=== PATIENT | male | born 1960 | race African-American/Black ===

== ENCOUNTER 2020-10-12 03:16 | Inpatient (IN) | payer MEDICAID ==
[~2020-10-12] VITALS: Ht 170.2 cm; Wt 137.0 kg
[2020-10-12 04:30] LABS: HEMATOCRIT. 34.6 % (42.0-52.0); HEMOGLOBIN. 10.7 g/dL (14.0-18.0); MEAN CORPUSCULAR HEMOGLOBIN 22.5 pg (28.0-32.0); MEAN PLATELET VOLUME 7.2 fl (7.4-10.4); PLATELET 359 x1000/uL (130-400); RED BLOOD CELL COUNT 4.74 mill/uL (4.7-6.1); RED CELL DISTRIBUTION WIDTH 17.1 % (11.6-14.6)
[2020-10-12] MEDS ORDERED: CEFTRIAXONE 1 G PREMIX 50 ML IV ONE (04:30)
[2020-10-12] MEDS ORDERED: AZITHROMYCIN 500 MG in DEXT 5% WATER 250 ML IV SCH (04:30)
[2020-10-12 04:40] LABS: INR 1.3; PROTHROMBIN TIME 13.5 sec (9.6-11.0)
[2020-10-12 04:49] LABS: CHLORIDE 103 mEq/L (98-107)
[2020-10-12] MEDS ORDERED: ONDANSETRON HCL 4MG/2ML INJ IV ONE (06:00)
[2020-10-12] MEDS ORDERED: AZITHROMYCIN 500 MG in DEXT 5% WATER 250 ML IV ONE (06:00)
[2020-10-12] MEDS ORDERED: FAMOTIDINE 20MG/2ML VIAL IV ONE (06:00)
[2020-10-12 06:26] LABS: PLATELET ESTIMATE NORMAL
[2020-10-12 09:50] VITALS: BP 175/62
[2020-10-12 10:51] VITALS: BP 153/91
[2020-10-12 12:00] VITALS: BP 154/62
[2020-10-12] MEDS ORDERED: DOCUSATE SODIUM 100MG CAPSULE PO PRN (14:00)
[2020-10-12] MEDS ORDERED: ZOLPIDEM TARTRATE 5MG TABLET PO PRN (14:00)
[2020-10-12] MEDS ORDERED: ONDANSETRON HCL 4MG/2ML INJ IV PRN (14:00)
[2020-10-12] MEDS ORDERED: LEVOFLOXACIN 500MG PREMIX 100 ML IV SCH (14:00)
[2020-10-12] MEDS ORDERED: CLONIDINE 0.1MG TABLET PO PRN (14:00)
[2020-10-12] MEDS: ENOXAPARIN 40MG/0.4ML SYR SUBCUT SCH (15:17)
[2020-10-12] MEDS: AMLODIPINE 10MG TABLET PO SCH (15:18)
[2020-10-12 16:00] VITALS: BP 126/44
[2020-10-12] MEDS ORDERED: LEVOFLOXACIN 750MG PREMIX 150 ML IV SCH (16:00)
[2020-10-12] MEDS ORDERED: DEXTROSE 50% WATER 50ML SYRINGE IV PRN (17:15)
[2020-10-12] MEDS: BLOOD SUGAR DIAGNOSTIC STRIP TEST SCH ×2 (17:21→21:19)
[2020-10-12] MEDS: INSULIN LISPRO 100 UNITS/ML SUBCUT SCH ×2 (17:22→21:31)
[2020-10-12 20:00] VITALS: BP 154/64
[2020-10-12] MEDS: SODIUM CHLORIDE 0.9% 1,000 ML IV SCH (21:19)
[2020-10-12] MEDS: ACETAMINOPHEN 325MG TABLET PO PRN (21:29)
[2020-10-12] MEDS: FAMOTIDINE 20MG/2ML VIAL IV SCH (21:30)
[2020-10-12] MEDS: INSULIN GLARGINE UD 100 UNITS/ML SYR SUBCUT SCH (21:32)
[2020-10-13] VITALS (7 sets, daily range): BP systolic 124–151; BP diastolic 51–64
[2020-10-13] MEDS: IPRATROPIUM/ALBUTEROL 0.5-3(2.5)MG/3ML NEB HHN PRN ×5 (01:39→21:31)
[2020-10-13] MEDS: BLOOD SUGAR DIAGNOSTIC STRIP TEST SCH ×4 (06:29→21:32)
[2020-10-13 08:49] LABS: CLARITY URINE CLEAR (CLEAR); COLOR URINE YELLOW (YELLOW); KETONES URINE NEGATIVE (NEGATIVE); LEUKOCYTE ESTERASE URINE NEGATIVE (NEGATIVE); NITRITE URINE NEGATIVE (NEGATIVE); OCCULT BLOOD URINE TRACE (NEGATIVE); PROTEIN URINE 2+ (NEGATIVE); SPECIFIC GRAVITY URINE 1.018 (1.005-1.030); UROBILINOGEN URINE 0.2 E.U./dL (0.2-1.0)
[2020-10-13] MEDS: AMLODIPINE 10MG TABLET PO SCH (09:43)
[2020-10-13] MEDS: INSULIN LISPRO 100 UNITS/ML SUBCUT SCH ×4 (09:44→21:44)
[2020-10-13] MEDS: INSULIN GLARGINE UD 100 UNITS/ML SYR SUBCUT SCH ×2 (09:54→21:45)
[2020-10-13] MEDS: SODIUM CHLORIDE 0.9% 1,000 ML IV SCH (16:27)
[2020-10-13] MEDS: ENOXAPARIN 40MG/0.4ML SYR SUBCUT SCH (16:27)
[2020-10-13] MEDS ORDERED: GUAIFENESIN/CODEINE 100-10MG/5ML UDC PO PRN (17:00)
[2020-10-13] MEDS: ACETAMINOPHEN 325MG TABLET PO PRN (19:43)
[2020-10-13] MEDS: GUAIFENESIN 200MG/10ML SUGAR FREE UDC PO PRN (19:44)
[2020-10-13] MEDS: FAMOTIDINE 20MG/2ML VIAL IV SCH (21:44)
[2020-10-14] VITALS: BP 151/62
[2020-10-14] MEDS: IPRATROPIUM/ALBUTEROL 0.5-3(2.5)MG/3ML NEB HHN PRN ×5 (00:11→17:15)
[2020-10-14] MEDS: ACETAMINOPHEN 325MG TABLET PO PRN ×2 (01:44→16:46)
[2020-10-14] MEDS: GUAIFENESIN 200MG/10ML SUGAR FREE UDC PO PRN ×3 (01:44→16:46)
[2020-10-14 04:00] VITALS: BP 154/62
[2020-10-14 06:37] LABS: HEMATOCRIT. 30.3 % (42.0-52.0); HEMOGLOBIN. 9.6 g/dL (14.0-18.0); MEAN CORPUSCULAR HEMOGLOBIN 22.6 pg (28.0-32.0); MEAN CORPUSCULAR VOLUME 71.4 fL (80.0-94.0); MEAN PLATELET VOLUME 7.4 fl (7.4-10.4); PLATELET 323 x1000/uL (130-400); RED BLOOD CELL COUNT 4.24 mill/uL (4.7-6.1); RED CELL DISTRIBUTION WIDTH 16.6 % (11.6-14.6)
[2020-10-14] MEDS: BLOOD SUGAR DIAGNOSTIC STRIP TEST SCH ×3 (07:20→17:33)
[2020-10-14 08:00] VITALS: BP 139/69
[2020-10-14 08:37] LABS: CHLORIDE 100 mEq/L (98-107)
[2020-10-14] MEDS: AMLODIPINE 10MG TABLET PO SCH (08:51)
[2020-10-14] MEDS: INSULIN LISPRO 100 UNITS/ML SUBCUT SCH ×3 (08:52→17:33)
[2020-10-14] MEDS: INSULIN GLARGINE UD 100 UNITS/ML SYR SUBCUT SCH (10:56)
[2020-10-14] MEDS ORDERED: LEVOFLOXACIN 750MG PREMIX 150 ML IV SCH (11:00)
[2020-10-14] MEDS: SODIUM CHLORIDE 0.9% 1,000 ML IV SCH (11:17)
[2020-10-14 12:00] VITALS: BP 150/69
[2020-10-14] MEDS: ENOXAPARIN 40MG/0.4ML SYR SUBCUT SCH (14:58)
[2020-10-14 16:00] VITALS: BP 152/44
[2020-10-14] MEDS ORDERED: INSULIN GLARGINE UD 100 UNITS/ML SYR SUBCUT SCH (22:00)
[2020-10-15 14:24] LABS: PLATELET ESTIMATE NORMAL
[2020-10-16 09:11] LABS: IMMUNOGLOBULIN A 372 mg/dL (61-437); IMMUNOGLOBULIN G 1511 mg/dL (603-1613); IMMUNOGLOBULIN M 23 mg/dL (20-172)
== END 2020-10-14 18:13 | disposition short-term general hospital (02) | DRG 139 ==
LOC: ER 03:16 → 6WST 06:15 → ENRESERV 07:49
PROVIDERS: ADMIT Internal Medicine Pulmonary Disease; ATTEND Internal Medicine Pulmonary Disease
DX: J18.9 Pneumonia, unspecified organism (principal); J96.20 Acute and chronic respiratory failure, unspecified whether with hypoxia or hypercapnia; E44.0 Moderate protein-calorie malnutrition; N17.9 Acute kidney failure, unspecified; E11.22 Type 2 diabetes mellitus with diabetic chronic kidney disease; C85.90 Non-Hodgkin lymphoma, unspecified, unspecified site; E11.319 Type 2 diabetes mellitus with unspecified diabetic retinopathy without macular edema; E87.1 Hypo-osmolality and hyponatremia; E11.51 Type 2 diabetes mellitus with diabetic peripheral angiopathy without gangrene; D50.9 Iron deficiency anemia, unspecified; I50.9 Heart failure, unspecified; I13.0 Hypertensive heart and chronic kidney disease with heart failure and stage 1 through stage 4 chronic kidney disease, or unspecified chronic kidney disease; E11.65 Type 2 diabetes mellitus with hyperglycemia; E66.01 Morbid (severe) obesity due to excess calories; G47.33 Obstructive sleep apnea (adult) (pediatric); N18.4 Chronic kidney disease, stage 4 (severe); Z87.891 Personal history of nicotine dependence; Z89.519 Acquired absence of unspecified leg below knee; Z20.822 Contact with and (suspected) exposure to COVID-19
CPT/HCPCS: 36415; 71045; 74176; 80053; 81003; 82784; 82962; 83036; 83615; 83880; 84484; 85025; 86334; 87426; 93005; 94640; 99285; J0456; J0696; J1650; J1815; J1956; J2405; J3490; J7030; J7060

== ENCOUNTER 2023-05-11 19:44 | Emergency (ER) | payer MEDICAID, OTHER ==
[~2023-05-11] VITALS: Ht 177.8 cm; Wt 125.0 kg
[~2023-05-11 19:44] MED LIST: METO5TAB86 MT
[2023-05-11 19:48] VITALS: TEMP 98.2; O2SAT 100
[2023-05-11] MEDS: KETOROLAC 30MG/ML VIAL IM ONE (22:51)
[2023-05-11 23:44] VITALS: BP 150/70; PULSE 80; RESP 15
== END 2023-05-11 23:55 | disposition home or self-care (01) ==
LOC: ER 19:44
DX: R22.1 Localized swelling, mass and lump, neck (principal); E11.9 Type 2 diabetes mellitus without complications; I10 Essential (primary) hypertension; Z98.890 Other specified postprocedural states; Z85.9 Personal history of malignant neoplasm, unspecified
CPT/HCPCS: 70450; 70486; 72125; 96372; 99285; J1885; Z7610 ×3

== ENCOUNTER 2025-01-14 21:39 | Inpatient (IN) | payer MEDICARE, MEDICAID ==
[~2025-01-14] VITALS: Ht 172.7 cm; Wt 129.7 kg
[~2025-01-14 21:39] MED LIST changes: +AMOX1TAB16 PO; +DOXY100C5 MT; +GABA-529 MT; +HYDR-4001 MT; +HYDR25TA78 MT; +INSU100I28 SQ; +NIFE-32 MT
[2025-01-14 21:50] VITALS: O2SAT 99
[2025-01-14] MEDS: CEFTRIAXONE 1GM/50ML 50 ML IV ONE (23:25)
[2025-01-14] MEDS: SODIUM CHLORIDE 0.9% 1,000 ML IV ONE (23:25)
[2025-01-14] MEDS: MORPHINE SULFATE 4 MG/ML INJ (FOR IV/IM USE) IV ONE (23:25)
[2025-01-14] MEDS: ONDANSETRON HCL 4MG/2ML INJ IV ONE (23:25)
[2025-01-14] MEDS: VANCOMYCIN 1G PREMIX 200 ML IV ONE (23:32)
[2025-01-14 23:36] LABS: BASOPHILS % 0.7 % (0.0-2.0); EOSINOPHILS % 2.9 % (0.0-5.0); HEMATOCRIT. 38.4 % (42.0-52.0); HEMOGLOBIN. 12.0 g/dL (14.0-18.0); LYMPHOCYTES % 14.6 % (20.0-50.0); MEAN PLATELET VOLUME 7.6 fl (7.4-10.4); MONOCYTES % 6.6 % (2.0-8.0); NEUTROPHILS % 75.2 % (40.0-76.0); PLATELET 290 x1000/uL (130-400); RED BLOOD CELL COUNT 5.27 mill/uL (4.7-6.1); RED CELL DISTRIBUTION WIDTH 15.5 % (11.6-14.6)
[2025-01-14 23:48] LABS: CREATININE 2.7 mg/dL (0.6-1.3); UREA NITROGEN BLOOD 23.0 mg/dL (9-23)
[2025-01-15] MEDS: INSULIN REGULAR (HUMULIN R) 1000UNITS/10ML VIAL SUBCUT NR (01:19)
[2025-01-15] MEDS ORDERED: GUAIFENESIN 200MG/10ML SUGAR FREE UDC PO PRN (02:45)
[2025-01-15] MEDS ORDERED: IPRATROPIUM/ALBUTEROL 0.5-3(2.5)MG/3ML NEB HHN PRN (02:45)
[2025-01-15] MEDS: SODIUM CHLORIDE 0.9% 1,000 ML IV SCH (02:45)
[2025-01-15] MEDS ORDERED: ACETAMINOPHEN 325MG TABLET PO PRN (02:45)
[2025-01-15] MEDS ORDERED: DOCUSATE SODIUM 100MG CAPSULE PO PRN (02:45)
[2025-01-15 02:50] VITALS: BP 157/65; PULSE 78; RESP 20; TEMP 36.418
[2025-01-15] MEDS ORDERED: DEXTROSE 50% WATER 50ML SYRINGE IV PRN (03:00)
[2025-01-15] MEDS ORDERED: HYDROCODONE/ACETAMINOPHEN 5/325MG TABLET PO PRN (03:00)
[2025-01-15] MEDS ORDERED: MEROPENEM 1,000 MG in SODIUM CHLORIDE 0.9% 100 ML IV SCH (03:00)
[2025-01-15] MEDS ORDERED: GABAPENTIN 100MG CAPSULE PO SCH (03:00)
[2025-01-15] MEDS ORDERED: INSULIN GLARGINE 100 UNITS/ML SUBCUT SCH (03:00)
[2025-01-15] MEDS: GABAPENTIN 100MG CAPSULE PO SCH (03:51)
[2025-01-15] MEDS: ACETAMINOPHEN 325MG TABLET PO PRN (03:51)
[2025-01-15] MEDS: INSULIN GLARGINE 100 UNITS/ML SUBCUT SCH (03:51)
[2025-01-15 04:00] VITALS: BP 127/53; PULSE 74; RESP 17; TEMP 35.9; O2SAT 99
[2025-01-15] MEDS: MEROPENEM 1G/100ML IV SCH (05:23)
[2025-01-15 08:00] VITALS: BP 124/46; PULSE 69; RESP 14; TEMP 35.7; O2SAT 95
[2025-01-15] MEDS: BLOOD SUGAR DIAGNOSTIC STRIP TEST SCH (08:35)
[2025-01-15] MEDS: INSULIN LISPRO 100 UNITS/ML SUBCUT SCH ×2 (08:38→08:39)
[2025-01-15] MEDS: FAMOTIDINE 20MG/2ML VIAL IV SCH (08:39)
[2025-01-15] MEDS: ENOXAPARIN 30MG/0.3ML SYR SUBCUT SCH (08:40)
[2025-01-15] MEDS: ASCORBIC ACID 250 MG TABLET PO SCH (08:41)
[2025-01-15] MEDS: ZINC SULFATE 220 MG ( 50 ) CAPSULE PO SCH (08:42)
[2025-01-15] MEDS: NIFEDIPINE XL 60MG TAB PO SCH (08:44)
[2025-01-15] MEDS: HYDRALAZINE HCL 25MG TABLET PO SCH (08:45)
[2025-01-15 12:00] VITALS: BP_SYST 163; BP_SYST 164; BP_DIAS 83; PULSE 71; PULSE 76; RESP 15; TEMP 36.3; O2SAT 96
[2025-01-15] MEDS: MORPHINE SULFATE 2 MG/ML INJ (NOT FOR IM USE) IV PRN (14:38)
[2025-01-15 15:37] LABS: BASOPHILS % 0.4 % (0.0-2.0); EOSINOPHILS % 3.3 % (0.0-5.0); HEMATOCRIT. 38.4 % (42.0-52.0); HEMOGLOBIN. 12.3 g/dL (14.0-18.0); LYMPHOCYTES % 12.6 % (20.0-50.0); MEAN PLATELET VOLUME 7.4 fl (7.4-10.4); MONOCYTES % 5.6 % (2.0-8.0); NEUTROPHILS % 78.1 % (40.0-76.0); PLATELET 264 x1000/uL (130-400); RED BLOOD CELL COUNT 5.28 mill/uL (4.7-6.1); RED CELL DISTRIBUTION WIDTH 15.6 % (11.6-14.6)
[2025-01-15 15:50] LABS: CREATININE 2.4 mg/dL (0.6-1.3)
[2025-01-15 15:51] LABS: TRIGLYCERIDE 268.0 mg/dL (0-150); UREA NITROGEN BLOOD 16.0 mg/dL (9-23)
[2025-01-15 15:52] LABS: LDL CHOLESTEROL 93.0 mg/dL (5-100)
[2025-01-15 16:00] VITALS: BP 136/51; PULSE 67; RESP 16; TEMP 36.4; O2SAT 97
[2025-01-15] MEDS: EMPAGLIFLOZIN 10MG TABLET PO SCH (17:24)
[2025-01-15 18:09] LABS: CLARITY URINE CLEAR (CLEAR); GLUCOSE URINE 3+ (NEGATIVE); KETONES URINE NEGATIVE (NEGATIVE); LEUKOCYTE ESTERASE URINE NEGATIVE (NEGATIVE); NITRITE URINE NEGATIVE (NEGATIVE); OCCULT BLOOD URINE NEGATIVE (NEGATIVE); PH URINE 5.5 (4.5-8.0); PROTEIN URINE 2+ (NEGATIVE); SPECIFIC GRAVITY URINE 1.014 (1.005-1.030); UROBILINOGEN URINE 0.2 E.U./dL (0.2-1.0)
[2025-01-15 18:20] LABS: *AMPHETAMINES SCREEN URINE NEGATIVE (NEGATIVE); *BARBITURATES SCREEN URINE NEGATIVE (NEGATIVE); *BENZODIAZEPINES SCREEN URINE NEGATIVE (NEGATIVE); *COCAINE SCREEN URINE NEGATIVE (NEGATIVE); CANNABINOID URINE SCREEN NEGATIVE (NEGATIVE); ECSTASY MDMA SCREEN URINE NEGATIVE (NEGATIVE); METHADONE URINE SCREEN NEGATIVE (NEGATIVE); OPIATES URINE SCREEN PRESUMPTIVE POSITIVE (NEGATIVE); PHENCYCLIDINE URINE SCREEN NEGATIVE (NEGATIVE)
[2025-01-15 19:25] LABS: COLOR URINE STRAW (YELLOW)
[2025-01-15 19:27] LABS: BACTERIA URINE NONE SEEN; MUCUS URINE 1+ /lpf (NONE/TRACE); RBC URINE 0-2 /hpf (0-2); SQUAMOUS EPITHELIAL CELL URINE RARE /lpf (RARE/1+); WBC URINE NONE SEEN /hpf (0-2)
[2025-01-15 20:00] VITALS: BP 146/64; PULSE 64; RESP 14; TEMP 36.1; O2SAT 98
[2025-01-15] MEDS: ATORVASTATIN CALCIUM 40MG TABLET PO SCH (22:37)
[2025-01-16] VITALS: BP 105/51; PULSE 75; RESP 16; TEMP 36.4; O2SAT 97
[2025-01-16] MEDS: VANCOMYCIN 750MG/150ML (BAXTER) IV SCH (00:09)
[2025-01-16] MEDS ORDERED: INSU100I28 SQ (00:12)
[2025-01-16 04:00] VITALS: BP 154/65; PULSE 85; RESP 16; TEMP 36.2; O2SAT 99
[2025-01-16 08:00] VITALS: BP 141/64; PULSE 80; RESP 20; TEMP 36.4; O2SAT 99
[2025-01-16 12:00] VITALS: BP 134/67; PULSE 84; RESP 18; TEMP 36.5; O2SAT 99
[2025-01-16 16:00] VITALS: BP 140/70; PULSE 89; RESP 20; TEMP 36.6; O2SAT 100
[2025-01-16 20:00] VITALS: BP 120/50; PULSE 80; RESP 20; TEMP 36.4; O2SAT 97
[2025-01-17] VITALS: BP 112/52; PULSE 76; RESP 20; TEMP 36.5; O2SAT 98
[2025-01-17 04:00] VITALS: BP 143/57; PULSE 83; RESP 18; TEMP 36.5; O2SAT 98
[2025-01-17 08:00] VITALS: BP 150/80; PULSE 81; RESP 20; TEMP 36.5; O2SAT 99
[2025-01-17 12:00] VITALS: BP 143/67; PULSE 88; RESP 18; TEMP 36.2; O2SAT 99
[2025-01-17 16:00] VITALS: BP 152/89; PULSE 86; RESP 20; TEMP 36.6; O2SAT 98
[2025-01-17 19:22] LABS: CREATININE 2.5 mg/dL (0.6-1.3); UREA NITROGEN BLOOD 30.0 mg/dL (9-23)
[2025-01-17 20:04] VITALS: BP 104/52; PULSE 82; RESP 18; TEMP 36.6; O2SAT 98
[2025-01-17] MEDS: HYDRALAZINE HCL 50MG TABLET PO SCH (20:06)
[2025-01-17] MEDS: METRONIDAZOLE 500MG TABLET PO SCH (20:20)
[2025-01-17] MEDS: CEFTRIAXONE 2GM/50ML 50 ML IV SCH (20:20)
[2025-01-17] MEDS: INSULIN GLARGINE 100 UNITS/ML SUBCUT SCH (22:00)
[2025-01-18] VITALS: BP 120/57; PULSE 73; RESP 18; TEMP 36.5; O2SAT 98
[2025-01-18 04:00] VITALS: BP 134/66; PULSE 84; RESP 18; TEMP 36.6; O2SAT 100
[2025-01-18 08:00] VITALS: BP 135/61; PULSE 85; RESP 20; TEMP 36.4; O2SAT 98
[2025-01-18 08:11] LABS: CREATININE 2.3 mg/dL (0.6-1.3)
[2025-01-18 08:12] LABS: UREA NITROGEN BLOOD 31 mg/dL (9-23)
[2025-01-18 08:14] LABS: PHOSPHORUS 3.3 mg/dL (2.5-4.9)
[2025-01-18 08:23] LABS: C REACTIVE PROTEIN HIGH SENS 25.11 mg/l (<1.00)
[2025-01-18 09:40] LABS: BASOPHILS % 0.7 % (0.0-2.0); EOSINOPHILS % 4.3 % (0.0-5.0); HEMATOCRIT. 35.1 % (42.0-52.0); HEMOGLOBIN. 11.1 g/dL (14.0-18.0); LYMPHOCYTES % 18.1 % (20.0-50.0); MEAN PLATELET VOLUME 7.3 fl (7.4-10.4); MONOCYTES % 8.3 % (2.0-8.0); NEUTROPHILS % 68.6 % (40.0-76.0); PLATELET 287 x1000/uL (130-400); RED BLOOD CELL COUNT 4.82 mill/uL (4.7-6.1); RED CELL DISTRIBUTION WIDTH 16.1 % (11.6-14.6)
[2025-01-18 10:33] LABS: ERYTHROCYTE SEDIMENTATION RATE 63 mm/hr (0-20)
[2025-01-18 12:00] VITALS: BP 156/71; PULSE 89; RESP 20; TEMP 36.7; O2SAT 98
[2025-01-18 16:00] VITALS: BP 181/81; PULSE 95; RESP 18; TEMP 36.5; O2SAT 98
[2025-01-18] MEDS: CLONIDINE 0.1MG TABLET PO PRN (17:44)
[2025-01-18 20:00] VITALS: BP 135/64; PULSE 78; RESP 19; TEMP 36.4; O2SAT 98
[2025-01-19 00:31] VITALS: BP 143/62; PULSE 78; RESP 20; TEMP 36.6; O2SAT 98
[2025-01-19 04:00] VITALS: BP 141/62; PULSE 80; RESP 20; TEMP 36.7; O2SAT 96
[2025-01-19 08:00] VITALS: BP 163/72; PULSE 74; RESP 18; TEMP 36.1; O2SAT 97
[2025-01-19 12:00] VITALS: BP 129/53; PULSE 69; RESP 16; TEMP 36.6; O2SAT 94
[2025-01-19 13:47] LABS: BASOPHILS % 0.8 % (0.0-2.0); EOSINOPHILS % 4.0 % (0.0-5.0); HEMATOCRIT. 36.6 % (42.0-52.0); HEMOGLOBIN. 11.4 g/dL (14.0-18.0); LYMPHOCYTES % 19.8 % (20.0-50.0); MONOCYTES % 4.1 % (2.0-8.0); NEUTROPHILS % 71.3 % (40.0-76.0); RED BLOOD CELL COUNT 4.96 mill/uL (4.7-6.1); RED CELL DISTRIBUTION WIDTH 16.2 % (11.6-14.6)
[2025-01-19 13:55] LABS: CREATININE 2.3 mg/dL (0.6-1.3); UREA NITROGEN BLOOD 33.0 mg/dL (9-23)
[2025-01-19 16:00] VITALS: BP 131/68; PULSE 67; RESP 17; TEMP 36.3; O2SAT 96
[2025-01-19 18:59] LABS: MEAN PLATELET VOLUME 7.5 fl (7.4-10.4); PLATELET 219 x1000/uL (130-400)
[2025-01-19 20:00] VITALS: BP 144/70; PULSE 73; RESP 18; TEMP 36.4; O2SAT 100
[2025-01-19] MEDS: MORPHINE SULFATE 2 MG/ML INJ (NOT FOR IM USE) IV SCH (21:08)
[2025-01-20] VITALS (7 sets, daily range): BP systolic 121–181; BP diastolic 52–75; PULSE 82–93; RESP 18–20; TEMP 35.8–37.6; O2SAT 95–100
[2025-01-20] MEDS ORDERED: VANCOMYCIN HCL 1GM VIAL ONE (06:36)
[2025-01-20] MEDS ORDERED: POLYMYXIN B SULFATE 500000 UNITS/VIAL ONE (06:36)
[2025-01-20] MEDS ORDERED: LIDOCAINE HCL/EPINEPHRINE 1%-EPI 1:100,000 20ML VIAL ONE (06:37)
[2025-01-20] MEDS ORDERED: PROPOFOL 200MG/20ML VIAL IV ONE (08:30)
[2025-01-20] MEDS ORDERED: HYDROMORPHONE HCL/PF 2MG/ML INJ ONE (09:15)
[2025-01-20] MEDS ORDERED: MORPHINE SULFATE 2 MG/ML INJ (NOT FOR IM USE) IV PRN (09:45)
[2025-01-20] MEDS ORDERED: ONDANSETRON HCL 4MG/2ML INJ IV PRN (09:45)
[2025-01-20] MEDS ORDERED: KETOROLAC 30MG/ML VIAL ONE (09:49)
[2025-01-20] MEDS ORDERED: ACETAMINOPHEN 1000MG/100ML 100 ML IV ONE (09:53)
[2025-01-20] MEDS ORDERED: CEFAZOLIN SODIUM 1000MG/VIAL ONE ×3 (10:17)
[2025-01-20] MEDS ORDERED: SUCCINYLCHOLINE CHLORIDE 200MG/10ML IV ONE (10:17)
[2025-01-20] MEDS ORDERED: THROMBIN (BOVINE) 5000 UNITS/VIAL TOP ONE (10:41)
[2025-01-20] MEDS ORDERED: ONDANSETRON HCL 4MG/2ML INJ ONE (10:48)
[2025-01-20] MEDS: FENTANYL CITRATE/PF 50MCG/ML 2ML VIAL IV PRN (11:56)
[2025-01-20] MEDS: HYDROMORPHONE HCL/PF 1MG/ML INJ IV PRN (12:28)
[2025-01-20] MEDS: ONDANSETRON HCL 4MG/2ML INJ IV PRN (12:53)
[2025-01-20 13:20] LABS: HEPATITIS C AB NON REACTIVE (Neg) (Negative)
[2025-01-20] MEDS: MORPHINE SULFATE 2 MG/ML INJ (NOT FOR IM USE) IV SCH (20:14)
[2025-01-21 04:00] VITALS: BP 136/47; PULSE 85; RESP 18; TEMP 35.9; O2SAT 96
[2025-01-21] MEDS ORDERED: HYDROCODONE/ACETAMINOPHEN 5/325MG TABLET PO PRN ×2 (10:15→14:15)
[2025-01-21] MEDS ORDERED: NALOXONE HCL 0.4MG/ML VIAL IV PRN (10:15)
[2025-01-21] MEDS ORDERED: KETOROLAC 15MG/ML VIAL IV PRN (11:45)
[2025-01-21 12:00] VITALS: BP 140/85; PULSE 80; RESP 16; TEMP 36.4; O2SAT 95
[2025-01-21] MEDS: MORPHINE SULFATE 2 MG/ML INJ (NOT FOR IM USE) IV PRN (12:09)
[2025-01-21] MEDS: INSULIN LISPRO 100 UNITS/ML SUBCUT SCH (13:23)
[2025-01-21 16:00] VITALS: BP 136/49; PULSE 76; RESP 18; TEMP 36.6; O2SAT 96
[2025-01-21 20:00] VITALS: BP 139/53; PULSE 86; RESP 20; TEMP 36.1; O2SAT 99
[2025-01-22 08:00] VITALS: BP 136/50; PULSE 84; RESP 19; TEMP 36.4; O2SAT 97
[2025-01-22 12:00] VITALS: BP 131/56; PULSE 85; RESP 19; TEMP 36.7; O2SAT 96
[2025-01-22 16:00] VITALS: BP 129/52; PULSE 82; RESP 19; TEMP 36.6; O2SAT 97
[2025-01-22] MEDS: INSULIN GLARGINE 100 UNITS/ML SUBCUT SCH (21:55)
[2025-01-23 08:00] VITALS: BP 128/52; PULSE 80; RESP 18; TEMP 36.7; O2SAT 98
[2025-01-23] MEDS ORDERED: HYDR50TA39 PO (10:16)
[2025-01-23] MEDS ORDERED: ZINC1CAP2 PO (10:16)
[2025-01-23] MEDS ORDERED: LIP40 PO (10:16)
[2025-01-23] MEDS ORDERED: METR-167 PO (10:16)
[2025-01-23] MEDS ORDERED: HYDR-4001 PO (10:16)
[2025-01-23] MEDS ORDERED: INSU100I28 SQ (10:16)
[2025-01-23] MEDS ORDERED: LANC1COM7 (10:16)
[2025-01-23] MEDS ORDERED: NIFE-32 PO (10:16)
[2025-01-23] MEDS ORDERED: ASCO-494 PO (10:16)
[2025-01-23] MEDS ORDERED: GABA-529 MT (10:16)
[2025-01-23] MEDS ORDERED: LEVO-65 MT (10:19)
[2025-01-23 11:44] LABS: BASOPHILS % 0.6 % (0.0-2.0); EOSINOPHILS % 2.7 % (0.0-5.0); HEMATOCRIT. 29.1 % (42.0-52.0); HEMOGLOBIN. 9.1 g/dL (14.0-18.0); LYMPHOCYTES % 10.7 % (20.0-50.0); MEAN PLATELET VOLUME 7.1 fl (7.4-10.4); MONOCYTES % 9.5 % (2.0-8.0); NEUTROPHILS % 76.5 % (40.0-76.0); PLATELET 291 x1000/uL (130-400); RED BLOOD CELL COUNT 3.92 mill/uL (4.7-6.1); RED CELL DISTRIBUTION WIDTH 16.4 % (11.6-14.6)
[2025-01-23 11:52] LABS: CREATININE 2.4 mg/dL (0.6-1.3); UREA NITROGEN BLOOD 38.0 mg/dL (9-23)
[2025-01-23 12:00] VITALS: BP 131/50; PULSE 85; RESP 18; TEMP 36.1; O2SAT 98
[2025-01-23] MEDS ORDERED: LEVOFLOXACIN 250MG TABLET PO SCH (15:00)
[2025-01-23 15:18] VITALS: BP 128/53; PULSE 78; RESP 18; TEMP 95
== END 2025-01-23 16:00 | disposition home health service (06) | DRG 853 ==
LOC: ER 21:39 → 7WST 01-15 00:16 → EDBEDREQ 01-15 00:17 → EDBEDREQDT 01-15 00:17 → EDBEDREQSVC 01-15 00:17 → EDBEDREQTM 01-15 00:17 → 6EST 01-21 00:07
PROVIDERS: ADMIT Internal Medicine; ATTEND Internal Medicine
PROC: 0Y6F0ZZ Detachment at Right Knee Region, Open Approach (ICD-10-PCS; principal; 2025-01-20)
DX: A41.9 Sepsis, unspecified organism (principal); N17.0 Acute kidney failure with tubular necrosis; T87.43 Infection of amputation stump, right lower extremity; L97.929 Non-pressure chronic ulcer of unspecified part of left lower leg with unspecified severity; D63.8 Anemia in other chronic diseases classified elsewhere; M86.9 Osteomyelitis, unspecified; L02.415 Cutaneous abscess of right lower limb; E11.22 Type 2 diabetes mellitus with diabetic chronic kidney disease; E66.01 Morbid (severe) obesity due to excess calories; I12.9 Hypertensive chronic kidney disease with stage 1 through stage 4 chronic kidney disease, or unspecified chronic kidney disease; J45.909 Unspecified asthma, uncomplicated; N18.32 Chronic kidney disease, stage 3b; E87.1 Hypo-osmolality and hyponatremia; Z68.41 Body mass index [BMI] 40.0-44.9, adult; E11.40 Type 2 diabetes mellitus with diabetic neuropathy, unspecified; E11.65 Type 2 diabetes mellitus with hyperglycemia; E11.621 Type 2 diabetes mellitus with foot ulcer; E11.69 Type 2 diabetes mellitus with other specified complication; D50.9 Iron deficiency anemia, unspecified; L97.519 Non-pressure chronic ulcer of other part of right foot with unspecified severity; E78.5 Hyperlipidemia, unspecified; I87.8 Other specified disorders of veins; L30.9 Dermatitis, unspecified; Z74.09 Other reduced mobility; Z59.9 Problem related to housing and economic circumstances, unspecified; Z79.4 Long term (current) use of insulin; Z79.84 Long term (current) use of oral hypoglycemic drugs; Z79.899 Other long term (current) drug therapy; Z86.19 Personal history of other infectious and parasitic diseases; Z99.3 Dependence on wheelchair; Y83.8 Other surgical procedures as the cause of abnormal reaction of the patient, or of later complication, without mention of misadventure at the time of the procedure
CPT/HCPCS: 36415; 71045; 73590; 73721; 80048; 80061; 80202; 80305; 81003; 82962; 83036; 83605; 83735; 84100; 85014; 85018; 85025; 85651; 86141; 86705; 86706; 86850; 86900; 87070; 87075; 87077; 87186; 88304; 88311; 93005; 93922; 97162; 97166; 99285; A4615; A6449; J0330; J0690; J0696; J1171; J1308; J1650; J1815; J1885; J2004; J2185; J2270; J2405; J2704; J3010; J3373; J3490; J7030; J7050; J0131